=== PATIENT | male | born 1990 | race Caucasian/White ===

== ENCOUNTER 2017-07-22 08:28 | Emergency (ER) | payer OTHER ==
--- NOTE | 2017-07-22 09:06 | EDM.PDOC ---
ED HPI GENERAL MEDICAL PROBLEM - General Chief Complaint: General Stated Complaint: [facility] Time Seen by Provider: 07/22/17 08:28 - History of Present Illness INITIAL COMMENTS - FREE TEXT/NARRATIVE: Male in his mid-20s brought in by EMS with suspected heroin overdose. I am uncertain as to what was going on at the hotel where he was found. Police arrived at the scene without the patient was not breathing the administered 2 mg of Narcan intranasally patient had spontaneous return of respirations. Apparently he did have CPR started briefly in the field by law enforcement. The patient is awake and answering a few questions while here when questioned about what atopic he doesn't know and will not answer questions with specifics at one point he said he couldn't hear however was still answering questions the patient has an ankle monitoring bracelet in place by law enforcement. - Related Data Allergies Allergy/AdvReac Type Severity Reaction Status Date / Time Penicillins Allergy Cannot Verified 07/22/17 08:57 Remember Home Meds: Home Meds Buprenorphine HCl/Naloxone HCl [Suboxone 4 mg-1 mg Sl Film] 8 mg SQ DAILY [History] Past Medical History - Past Health History Medical/Surgical History: Denies Medical/Surgical History Social & Family History - Tobacco Use Smoking Status *Q: Current Status Unknown - Recreational Drug Use Recreational Drug Use: Yes Drug Use in Last 12 Months: Yes ED ROS GENERAL - Review of Systems Review Of Systems: Unable To Obtain ED EXAM, GENERAL - Physical Exam Exam: See Below Exam Limited By: Other (At times the patient answers questions very appropriately when a subject such as what did you take comes up the answer as always I don't know. His vital signs appear stable however because of technical difficulties monitoring his end-tidal CO2 has been achieved as of this time.) General Appearance: Alert (He seems to wake up appropriately), No Apparent Distress Eye Exam: Bilateral Eye: EOMI, PERRL Ears: Normal External Exam, Normal Canal, Hearing Grossly Normal, Normal TMs Nose: Normal Inspection, Normal Mucosa, No Blood Throat/Mouth: Normal Inspection, Normal Lips, Normal Gums, Normal Oropharynx, Normal Voice, No Airway Compromise Head: Atraumatic, Normocephalic Neck: Normal Inspection, Supple, Non-Tender, Full Range of Motion. No: Lymphadenopathy (L), Lymphadenopathy (R) Respiratory/Chest: No Respiratory Distress, Lungs Clear, Normal Breath Sounds Cardiovascular: Regular Rate, Rhythm, No Edema, No Murmur GI/Abdominal: Normal Bowel Sounds, Soft, Non-Tender Extremities: Normal Inspection, Non-Tender, No Pedal Edema Neurological: Alert EKG INTERPRETATION EKG Date: 07/22/17 Time: 09:11 Rhythm: Other (Sinus driven tachycardia) [place]: Normal P-Wave: Present QRS: Normal ST-T: Other (Nonspecific nondiagnostic changes) QT: Normal Comparison: NA - No Prior EKG Course - Vital Signs Last Recorded V/S: Last Vital Signs Temp 36.9 C 07/22/17 09:30 Pulse 109 H 07/22/17 09:30 Resp 24 H 07/22/17 09:30 BP 145/76 H 07/22/17 09:30 Pulse Ox 97 07/22/17 09:30 - Orders/Labs/Meds Orders: Active Orders 24 hr Category Date Time Status EKG Documentation Completion [RC] STAT Care 07/22/17 08:40 Active BLOOD GAS ARTERIAL [BG] Stat Lab 07/22/17 08:40 Results Lactated Ringers [Ringers, Lactated] 1,000 ml Med 07/22/17 09:15 Active IV ASDIRECTED Medication Orders Lactated Ringer's (Ringers, Lactated) 1,000 mls @ 150 mls/hr IV ASDIRECTED [facility] Last Admin: 07/22/17 09:25 Dose: 150 mls/hr Labs: Laboratory Tests 07/22/17 07/22/17 07/22/17 Range/Units 08:40 09:24 09:24 WBC 10.88 H (4.23-9.07) K/mm3 RBC 5.32 (4.63-6.08) M/mm3 Hgb 15.8 (13.7-17.5) gm/L Hct 45.6 (40.1-51.0) % MCV 85.7 (79.0-92.2) fl MCH 29.7 (25.7-32.2) pg MCHC 34.6 (32.2-35.5) g/dl RDW Std Deviation 40.3 (35.1-43.9) fL Plt Count 146 L (163-337) K/mm3 MPV 9.3 L (9.4-12.3) fl Neutrophils % (Manual) 71 H (40-60) % Band Neutrophils % 0 (0-10) % Lymphocytes % (Manual) 24 (20-40) % Atypical Lymphs % 0 % Monocytes % (Manual) 4 (2-10) % Eosinophils % (Manual) 1 (0.8-7.0) % Basophils % (Manual) 0 L (0.2-1.2) Platelet Estimate Adequate RBC Morph Comment Normal Puncture Site Lt radial ABG pH 7.43 (7.35-7.45) ABG pCO2 44.6 (35.0-45.0) mmHg ABG pO2 62.0 L (80.0-100.0) mmHg ABG HCO3 28.8 H (22.0-26.0) meq/L ABG O2 Saturation 93.2 L (96.0-97.0) % ABG Base Excess 4.2 H (-2-2.0) Eddie Test Positive O2 Delivery Device Room air FiO2 0.00 L (21.00-100.00) % Sodium 139 (136-145) mEq/L Potassium 3.4 L (3.5-5.1) mEq/L Chloride 102 (98-107) mEq/L Carbon Dioxide 31 (21-32) mEq/L Anion Gap 9.4 (5-15) BUN 11 (7-18) mg/dL Creatinine 0.9 (0.7-1.3) mg/dL Est Cr Clr Drug Dosing 119.70 mL/min Estimated GFR (MDRD) > 60 (>60) mL/min BUN/Creatinine Ratio 12.2 L (14-18) Glucose 101 (74-106) mg/dL Calcium 8.8 (8.5-10.1) mg/dL Total Bilirubin 0.5 (0.2-1.0) mg/dL AST 53 H (15-37) U/L ALT 101 H (16-63) U/L Alkaline Phosphatase 41 L (46-116) U/L Troponin I < 0.017 (0.00-0.056) ng/mL Total Protein 7.4 (6.4-8.2) g/dl Albumin 3.6 (3.4-5.0) g/dl Globulin 3.8 gm/dL Albumin/Globulin Ratio 1.0 (1-2) Urine Color (Yellow) Urine Appearance (Clear) Urine pH (5.0-8.0) Ur Specific [place] (1.005-1.030) Urine Protein (Negative) Urine Glucose (UA) (Negative) Urine Ketones (Negative) Urine Occult Blood (Negative) Urine Nitrite (Negative) Urine Bilirubin (Negative) Urine Urobilinogen (0.2-1.0) Ur Leukocyte Esterase (Negative) Urine RBC (0-5) /hpf Urine WBC (0-5) /hpf Ur Epithelial Cells (0-5) /hpf Urine Bacteria (FEW) /hpf Hyaline Casts (0-5) /lpf Urine Mucus (FEW) /hpf Salicylates (2.8-20) mg/dL Urine Opiates Screen (NEGATIVE) Ur Buprenorphine Scrn (NEGATIVE) Ur Oxycodone Screen (NEGATIVE) Urine Methadone Screen (NEGATIVE) Ur Propoxyphene Screen (NEGATIVE) Acetaminophen 0 L (10-30) ug/mL Ur Barbiturates Screen (NEGATIVE) Ur Tricyclics Screen (NEGATIVE) Ur Phencyclidine Scrn (NEGATIVE) Ur Amphetamine Screen (NEGATIVE) U Methamphetamines Scrn (NEGATIVE) U Benzodiazepines Scrn (NEGATIVE) U Cocaine Metab Screen (NEGATIVE) U Marijuana (THC) Screen (NEGATIVE) 07/22/17 07/22/17 07/22/17 Range/Units 09:24 10:45 10:45 WBC (4.23-9.07) K/mm3 RBC (4.63-6.08) M/mm3 Hgb (13.7-17.5) gm/L Hct (40.1-51.0) % MCV (79.0-92.2) fl MCH (25.7-32.2) pg MCHC (32.2-35.5) g/dl RDW Std Deviation (35.1-43.9) fL Plt Count (163-337) K/mm3 MPV (9.4-12.3) fl Neutrophils % (Manual) (40-60) % Band Neutrophils % (0-10) % Lymphocytes % (Manual) (20-40) % Atypical Lymphs % % Monocytes % (Manual) (2-10) % Eosinophils % (Manual) (0.8-7.0) % Basophils % (Manual) (0.2-1.2) Platelet Estimate RBC Morph Comment Puncture Site ABG pH (7.35-7.45) ABG pCO2 (35.0-45.0) mmHg ABG pO2 (80.0-100.0) mmHg ABG HCO3 (22.0-26.0) meq/L ABG O2 Saturation (96.0-97.0) % ABG Base Excess (-2-2.0) Eddie Test O2 Delivery Device FiO2 (21.00-100.00) % Sodium (136-145) mEq/L Potassium (3.5-5.1) mEq/L Chloride (98-107) mEq/L Carbon Dioxide (21-32) mEq/L Anion Gap (5-15) BUN (7-18) mg/dL Creatinine (0.7-1.3) mg/dL Est Cr Clr Drug Dosing mL/min Estimated GFR (MDRD) (>60) mL/min BUN/Creatinine Ratio (14-18) Glucose (74-106) mg/dL Calcium (8.5-10.1) mg/dL Total Bilirubin (0.2-1.0) mg/dL AST (15-37) U/L ALT (16-63) U/L Alkaline Phosphatase (46-116) U/L Troponin I (0.00-0.056) ng/mL Total Protein (6.4-8.2) g/dl Albumin (3.4-5.0) g/dl Globulin gm/dL Albumin/Globulin Ratio (1-2) Urine Color Yellow (Yellow) Urine Appearance Clear (Clear) Urine pH 6.5 (5.0-8.0) Ur Specific [place] 1.025 (1.005-1.030) Urine Protein 1+ H (Negative) Urine Glucose (UA) Negative (Negative) Urine Ketones Negative (Negative) Urine Occult Blood Negative (Negative) Urine Nitrite Negative (Negative) Urine Bilirubin Negative (Negative) Urine Urobilinogen 0.2 (0.2-1.0) Ur Leukocyte Esterase Negative (Negative) Urine RBC 0-5 (0-5) /hpf Urine WBC 0-5 (0-5) /hpf Ur Epithelial Cells Not seen (0-5) /hpf Urine Bacteria Not seen (FEW) /hpf Hyaline Casts 0-5 (0-5) /lpf Urine Mucus Few (FEW) /hpf Salicylates 1.6 L (2.8-20) mg/dL Urine Opiates Screen Negative (NEGATIVE) Ur Buprenorphine Scrn Negative (NEGATIVE) Ur Oxycodone Screen Negative (NEGATIVE) Urine Methadone Screen Negative (NEGATIVE) Ur Propoxyphene Screen Negative (NEGATIVE) Acetaminophen (10-30) ug/mL Ur Barbiturates Screen Negative (NEGATIVE) Ur Tricyclics Screen Negative (NEGATIVE) Ur Phencyclidine Scrn Negative (NEGATIVE) Ur Amphetamine Screen Presumptive positive H (NEGATIVE) U Methamphetamines Scrn Negative (NEGATIVE) U Benzodiazepines Scrn Negative (NEGATIVE) U Cocaine Metab Screen Negative (NEGATIVE) U Marijuana (THC) Screen Presumptive positive H (NEGATIVE) 07/22/17 Range/Units 11:10 WBC (4.23-9.07) K/mm3 RBC (4.63-6.08) M/mm3 Hgb (13.7-17.5) gm/L Hct (40.1-51.0) % MCV (79.0-92.2) fl MCH (25.7-32.2) pg MCHC (32.2-35.5) g/dl RDW Std Deviation (35.1-43.9) fL Plt Count (163-337) K/mm3 MPV (9.4-12.3) fl Neutrophils % (Manual) (40-60) % Band Neutrophils % (0-10) % Lymphocytes % (Manual) (20-40) % Atypical Lymphs % % Monocytes % (Manual) (2-10) % Eosinophils % (Manual) (0.8-7.0) % Basophils % (Manual) (0.2-1.2) Platelet Estimate RBC Morph Comment Puncture Site Lt radial ABG pH 7.39 (7.35-7.45) ABG pCO2 49.7 H (35.0-45.0) mmHg ABG pO2 94.0 (80.0-100.0) mmHg ABG HCO3 29.4 H (22.0-26.0) meq/L ABG O2 Saturation 97.9 H (96.0-97.0) % ABG Base Excess 3.9 H (-2-2.0) Eddie Test Positive O2 Delivery Device Nasal cannula FiO2 0.00 L (21.00-100.00) % Sodium (136-145) mEq/L Potassium (3.5-5.1) mEq/L Chloride (98-107) mEq/L Carbon Dioxide (21-32) mEq/L Anion Gap (5-15) BUN (7-18) mg/dL Creatinine (0.7-1.3) mg/dL Est Cr Clr Drug Dosing mL/min Estimated GFR (MDRD) (>60) mL/min BUN/Creatinine Ratio (14-18) Glucose (74-106) mg/dL Calcium (8.5-10.1) mg/dL Total Bilirubin (0.2-1.0) mg/dL AST (15-37) U/L ALT (16-63) U/L Alkaline Phosphatase (46-116) U/L Troponin I (0.00-0.056) ng/mL Total Protein (6.4-8.2) g/dl Albumin (3.4-5.0) g/dl Globulin gm/dL Albumin/Globulin Ratio (1-2) Urine Color (Yellow) Urine Appearance (Clear) Urine pH (5.0-8.0) Ur Specific [place] (1.005-1.030) Urine Protein (Negative) Urine Glucose (UA) (Negative) Urine Ketones (Negative) Urine Occult Blood (Negative) Urine Nitrite (Negative) Urine Bilirubin (Negative) Urine Urobilinogen (0.2-1.0) Ur Leukocyte Esterase (Negative) Urine RBC (0-5) /hpf Urine WBC (0-5) /hpf Ur Epithelial Cells (0-5) /hpf Urine Bacteria (FEW) /hpf Hyaline Casts (0-5) /lpf Urine Mucus (FEW) /hpf Salicylates (2.8-20) mg/dL Urine Opiates Screen (NEGATIVE) Ur Buprenorphine Scrn (NEGATIVE) Ur Oxycodone Screen (NEGATIVE) Urine Methadone Screen (NEGATIVE) Ur Propoxyphene Screen (NEGATIVE) Acetaminophen (10-30) ug/mL Ur Barbiturates Screen (NEGATIVE) Ur Tricyclics Screen (NEGATIVE) Ur Phencyclidine Scrn (NEGATIVE) Ur Amphetamine Screen (NEGATIVE) U Methamphetamines Scrn (NEGATIVE) U Benzodiazepines Scrn (NEGATIVE) U Cocaine Metab Screen (NEGATIVE) U Marijuana (THC) Screen (NEGATIVE) Meds: Medications Generic Name Dose Route Start Last Admin Trade Name Freq PRN Reason Stop Dose Admin Lactated Ringer's 1,000 mls @ 150 mls/hr 07/22/17 09:15 07/22/17 09:25 Ringers, Lactated IV 150 mls/hr ASDIRECTED [facility] Administration - Re-Assessments/Exams Free Text/Narrative Re-Assessment/Exam: 07/22/17 09:10 It is my understanding this time we're still trying to get an EKG ABGs just got called for and we have not been able to get in tidal CO2 going. Getting accurate measurements to metabolic situation especially when he was out in the field is getting be less reflective of what we get now. 07/22/17 09:36 His blood gas pH is 7.43 PCO2 44.6 PO2 is diminished 62 bicarbonate 28.8, 02 saturation 93.2% we'll start him on supplemental oxygen continue to monitor in tidal CO2. Chest x-ray shows a sinus tachycardia 07/22/17 09:41 07/22/17 13:11 He continues to do well follow-up gases show correction of his PO2 the patient' s bicarbonate is still up a little bit. With conversation with the patient he admits to using heroin it's been quite a long time since he used heroin. His urine drug screen did not show any opioids and I am not surprised with a history like this. The patient's hypoxic episode clarified with a friend of the patient he really never had chest compressions done but he was having deep irregular respirations and at one point he turned blue quickly responded to this the time of this uncertainty is not quite clear perhaps 2 minutes perhaps as long as 5 minutes I have strongly recommended and offered to arrange transport to [place] for further observation and neurologic evaluation with the unknown details of the suspected hypoxic event. The patient adamantly refused this when I first discussed this with him and again we just recently discussed this with him. The patient's friend who is sober and clean agrees to keep a very close eye on the patient. The patient was also question about his intent. He adamantly denies any suicidal wishes. He has no wishes to harm himself or others. Departure - Departure Time of Disposition: 13:14 Disposition: Home, Self-Care 01 Clinical Impression: Accidental heroin overdose - Discharge Information Forms: ED Department Discharge Additional Instructions: Return to emergency room if any questions problems or worsening symptoms. Avoid all drugs that are not provided to you by a physician or health care provider. Follow-up at the Hospital clinic on Tuesday for recheck call today for an appointment [phone] - My Orders Last 24 Hours: My Active Orders 07/22/17 08:40 EKG Documentation Completion [RC] STAT BLOOD GAS ARTERIAL [BG] Stat 07/22/17 09:15 Lactated Ringers [Ringers, Lactated] 1,000 ml IV ASDIRECTED - Assessment/Plan Last 24 Hours: My Active Orders 07/22/17 08:40 EKG Documentation Completion [RC] STAT BLOOD GAS ARTERIAL [BG] Stat 07/22/17 09:15 Lactated Ringers [Ringers, Lactated] 1,000 ml IV ASDIRECTED
[2017-07-22] MEDS ORDERED: Lactated Ringers 1,000 ML IV SCH (09:15)
[2017-07-22 10:14] LABS: ACETAMINOPHEN 0 ug/mL (10-30)
== END 2017-07-22 13:35 | disposition home or self-care (01) ==
LOC: EDBD 08:28 → JD.ED 08:28
DX: T40.1X1A Poisoning by heroin, accidental (unintentional), initial encounter (principal); Z88.0 Allergy status to penicillin; Z79.899 Other long term (current) drug therapy
CPT/HCPCS: 36415; 36600; 80053; 80306; 81001; 82803; 84484; 85025; 93005; 96360; 96361; 99285; G0480; J7120

== ENCOUNTER 2017-10-19 09:48 | Emergency (ER) | payer SELFPAY ==
[2017-10-19] MEDS ORDERED: hydrOXYzine HCl 25 MG/ML SDV IM ONE (11:04)
--- NOTE | 2017-10-19 11:04 | EDM.PDOCBH ---
ED HPI GENERAL MEDICAL PROBLEM - General Chief Complaint: Drug or Alcohol Abuse Stated Complaint: ANXIETY/MEDICAL CLEARANCE FOR [facility] Time Seen by Provider: 10/19/17 10:53 Source of Information: Reports: Patient History Limitations: Reports: No Limitations - History of Present Illness INITIAL COMMENTS - FREE TEXT/NARRATIVE: 27-year-old male presents for medical clearance to go to [facility]. Patient reports he was recently incarcerated September 26 through October 16. States he was jailed for driving under suspension. Reports he has a history of heroin abuse. Has not used heroin in the past several months. Previously on Suboxone, last use September 26 prior to incarceration. This was prescribed by Dr. Ogden in [place]. Patient presents today over concerns of any anxiety. He states he's always had anxiety but since being released from retirement his anxiety has increased substantially. He states he hasn't slept since Tuesday. Reports that he was having trouble falling asleep but he is having trouble staying asleep. He reports he experiences chest palpitations, shortness of breath and chest pain from anxiety and panic attacks. He has not had any fevers, chills, nausea, vomiting, headaches, seizures or any cough. He states that he's had 2 episodes of diarrhea. Patient reports he has a history of hep C. He is never seen gastroenterology for this. No primary care provider here in [place]. Denies any recent alcohol use. Reports the same drinking alcohol was about 6 months ago. Left Shoulder Pain Score (Numeric/FACES): 1 Face Pain Score (Numeric/FACES): 1 - Related Data Allergies Allergy/AdvReac Type Severity Reaction Status Date / Time Penicillins Allergy Cannot Verified 10/19/17 10:05 Remember Home Meds: Home Meds Buprenorphine HCl/Naloxone HCl [Zubsolv 11.4-2.9 mg Tablet Sl] 11.4 mg SL BID [History] Ondansetron [Zofran ODT] 4 mg PO Q6H PRN #20 tab.dis 10/19/17 [Rx] hydrOXYzine HCl [Atarax] 25 mg PO DAILY #57 tab 10/19/17 [Rx] Past Medical History - Past Health History Medical/Surgical History: Denies Medical/Surgical History HEENT History: Reports: Other (See Below) Other HEENT History: "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 Gastrointestinal History: Reports: GERD, Hepatitis Musculoskeletal History: Reports: Fracture Neurological History: Reports: Concussion, Head Trauma Psychiatric History: Reports: Addiction, Anxiety, Depression - Infectious Disease History Infectious Disease History: Reports: Chicken Pox, Hepatitis C - Past Surgical History HEENT Surgical History: Reports: Tonsillectomy GI Surgical History: Reports: Appendectomy Musculoskeletal Surgical History: Reports: Other (See Below) Other Musculoskeletal Surgeries/Procedures:: reconstructive surgery to face. Social & Family History - Tobacco Use Smoking Status *Q: Current Every Day Smoker Years of Tobacco use: 20 Packs/Tins Daily: 1 - Caffeine Use Caffeine Use: Reports: Coffee - Recreational Drug Use Recreational Drug Use: Yes Drug Use in Last 12 Months: Yes Recreational Drug Type: Reports: Heroin ED ROS GENERAL - Review of Systems Review Of Systems: See Below Constitutional: Denies: Fever, Chills Respiratory: Reports: Shortness of Breath Cardiovascular: Reports: Chest Pain, Palpitations GI/Abdominal: Reports: Abdominal Pain (LUQ sharp pains), Diarrhea. Denies: Nausea, Vomiting Neurological: Denies: Headache, Seizure Psychiatric: Reports: Anxiety ED EXAM, BEHAVIORAL HEALTH - Physical Exam Exam: See Below Exam Limited By: No Limitations General Appearance: Alert, WD/WN, No Apparent Distress Eye Exam: Bilateral Eye: Normal Inspection Ears: Normal External Exam Nose: Normal Inspection Throat/Mouth: Normal Inspection, Normal Lips, Normal Voice, No Airway Compromise Respiratory/Chest: No Respiratory Distress, Lungs Clear, Normal Breath Sounds Cardiovascular: No Murmur, Tachycardia GI/Abdominal: Normal Bowel Sounds, Soft, Non-Tender Neurological: Alert, Normal Mood/Affect, Normal Cognition Psychiatric: Alert, Restless, Other (fidgiting) Skin Exam: Warm, Dry, Normal color COURSE, BEHAVIORAL HEALTH COMP - Course Vital Signs: Last Vital Signs Temp 36.5 C 10/19/17 09:55 Pulse 120 H 10/19/17 09:55 Resp 20 10/19/17 09:55 BP 162/96 H 10/19/17 09:55 Pulse Ox 99 10/19/17 09:55 Orders, Labs, Meds: Active Orders 24 hr Category Date Time Status DRUG SCREEN, URINE [URCHEM] Stat Lab 10/19/17 12:05 Ordered UA W/MICROSCOPIC [URIN] Stat Lab 10/19/17 12:05 Ordered Laboratory Tests 10/19/17 10/19/17 10/19/17 Range/Units 11:20 11:20 11:20 WBC 7.64 (4.23-9.07) K/mm3 RBC 5.44 (4.63-6.08) M/mm3 Hgb 16.3 (13.7-17.5) gm/L Hct 48.3 (40.1-51.0) % MCV 88.8 (79.0-92.2) fl MCH 30.0 (25.7-32.2) pg MCHC 33.7 (32.2-35.5) g/dl RDW Std Deviation 45.8 H (35.1-43.9) fL Plt Count 148 L (163-337) K/mm3 MPV 9.0 L (9.4-12.3) fl Neutrophils % (Manual) 55 (40-60) % Band Neutrophils % 0 (0-10) % Lymphocytes % (Manual) 45 H (20-40) % Atypical Lymphs % 0 % Monocytes % (Manual) 0 L (2-10) % Eosinophils % (Manual) 0 L (0.8-7.0) % Basophils % (Manual) 0 L (0.2-1.2) Platelet Estimate Adequate RBC Morph Comment Normal PT 10.4 (8.0-13.0) SECONDS INR 0.97 APTT 27 (22-36) SECONDS Sodium 145 (136-145) mEq/L Potassium 3.8 (3.5-5.1) mEq/L Chloride 104 (98-107) mEq/L Carbon Dioxide 30 (21-32) mEq/L Anion Gap 14.8 (5-15) BUN 21 H (7-18) mg/dL Creatinine 1.0 (0.7-1.3) mg/dL Est Cr Clr Drug Dosing 104.66 mL/min Estimated GFR (MDRD) > 60 (>60) mL/min BUN/Creatinine Ratio 21.0 H (14-18) Glucose 98 (74-106) mg/dL Calcium 9.7 (8.5-10.1) mg/dL Magnesium 2.2 (1.8-2.4) mg/dl Total Bilirubin 1.0 (0.2-1.0) mg/dL AST 97 H (15-37) U/L ALT 206 H (16-63) U/L Alkaline Phosphatase 42 L (46-116) U/L Total Protein 8.2 (6.4-8.2) g/dl Albumin 4.5 (3.4-5.0) g/dl Globulin 3.7 gm/dL Albumin/Globulin Ratio 1.2 (1-2) Lipase 92 (73-393) U/L TSH 3rd Generation 1.026 (0.358-3.74) uIU/mL Urine Color (Yellow) Urine Appearance (Clear) Urine pH (5.0-8.0) Ur Specific [place] (1.005-1.030) Urine Protein (Negative) Urine Glucose (UA) (Negative) Urine Ketones (Negative) Urine Occult Blood (Negative) Urine Nitrite (Negative) Urine Bilirubin (Negative) Urine Urobilinogen (0.2-1.0) Ur Leukocyte Esterase (Negative) Urine RBC (0-5) /hpf Urine WBC (0-5) /hpf Ur Epithelial Cells (0-5) /hpf Amorphous Sediment (NOT SEEN) /hpf Urine Bacteria (FEW) /hpf Urine Mucus (FEW) /hpf Urine Opiates Screen (NEGATIVE) Ur Buprenorphine Scrn (NEGATIVE) Ur Oxycodone Screen (NEGATIVE) Urine Methadone Screen (NEGATIVE) Ur Propoxyphene Screen (NEGATIVE) Ur Barbiturates Screen (NEGATIVE) Ur Tricyclics Screen (NEGATIVE) Ur Phencyclidine Scrn (NEGATIVE) Ur Amphetamine Screen (NEGATIVE) U Methamphetamines Scrn (NEGATIVE) U Benzodiazepines Scrn (NEGATIVE) U Cocaine Metab Screen (NEGATIVE) U Marijuana (THC) Screen (NEGATIVE) Ethyl Alcohol 0.00 (0.00) gm% 10/19/17 10/19/17 Range/Units 12:05 12:05 WBC (4.23-9.07) K/mm3 RBC (4.63-6.08) M/mm3 Hgb (13.7-17.5) gm/L Hct (40.1-51.0) % MCV (79.0-92.2) fl MCH (25.7-32.2) pg MCHC (32.2-35.5) g/dl RDW Std Deviation (35.1-43.9) fL Plt Count (163-337) K/mm3 MPV (9.4-12.3) fl Neutrophils % (Manual) (40-60) % Band Neutrophils % (0-10) % Lymphocytes % (Manual) (20-40) % Atypical Lymphs % % Monocytes % (Manual) (2-10) % Eosinophils % (Manual) (0.8-7.0) % Basophils % (Manual) (0.2-1.2) Platelet Estimate RBC Morph Comment PT (8.0-13.0) SECONDS INR APTT (22-36) SECONDS Sodium (136-145) mEq/L Potassium (3.5-5.1) mEq/L Chloride (98-107) mEq/L Carbon Dioxide (21-32) mEq/L Anion Gap (5-15) BUN (7-18) mg/dL Creatinine (0.7-1.3) mg/dL Est Cr Clr Drug Dosing mL/min Estimated GFR (MDRD) (>60) mL/min BUN/Creatinine Ratio (14-18) Glucose (74-106) mg/dL Calcium (8.5-10.1) mg/dL Magnesium (1.8-2.4) mg/dl Total Bilirubin (0.2-1.0) mg/dL AST (15-37) U/L ALT (16-63) U/L Alkaline Phosphatase (46-116) U/L Total Protein (6.4-8.2) g/dl Albumin (3.4-5.0) g/dl Globulin gm/dL Albumin/Globulin Ratio (1-2) Lipase (73-393) U/L TSH 3rd Generation (0.358-3.74) uIU/mL Urine Color Yellow (Yellow) Urine Appearance Slt cloudy H (Clear) Urine pH 7.0 (5.0-8.0) Ur Specific [place] 1.025 (1.005-1.030) Urine Protein 1+ H (Negative) Urine Glucose (UA) Negative (Negative) Urine Ketones Negative (Negative) Urine Occult Blood Negative (Negative) Urine Nitrite Negative (Negative) Urine Bilirubin Negative (Negative) Urine Urobilinogen 1.0 (0.2-1.0) Ur Leukocyte Esterase Negative (Negative) Urine RBC Not seen (0-5) /hpf Urine WBC 0-5 (0-5) /hpf Ur Epithelial Cells Not seen (0-5) /hpf Amorphous Sediment Many H (NOT SEEN) /hpf Urine Bacteria Many H (FEW) /hpf Urine Mucus Few (FEW) /hpf Urine Opiates Screen Negative (NEGATIVE) Ur Buprenorphine Scrn Negative (NEGATIVE) Ur Oxycodone Screen Negative (NEGATIVE) Urine Methadone Screen Negative (NEGATIVE) Ur Propoxyphene Screen Negative (NEGATIVE) Ur Barbiturates Screen Negative (NEGATIVE) Ur Tricyclics Screen Negative (NEGATIVE) Ur Phencyclidine Scrn Negative (NEGATIVE) Ur Amphetamine Screen Presumptive positive H (NEGATIVE) U Methamphetamines Scrn Negative (NEGATIVE) U Benzodiazepines Scrn Negative (NEGATIVE) U Cocaine Metab Screen Negative (NEGATIVE) U Marijuana (THC) Screen Presumptive positive H (NEGATIVE) Ethyl Alcohol (0.00) gm% Medications Discontinued Medications Generic Name Dose Route Start Last Admin Trade Name Freq PRN Reason Stop Dose Admin Hydroxyzine HCl 50 mg 10/19/17 11:04 10/19/17 11:16 Vistaril IM 10/19/17 11:05 50 mg ONETIME ONE Administration Re-Assessment/Re-Exam: 13:50 checked on the patient he was sleeping. He is now awake. Tachycardia improved in the 90s, Likely from amphetamine as he did test positive, presumptively, for this. I do feel that he is medically cleared to go to [facility]. I will give him hydroxyzine and Zofran for his side effects. I reviewed the labs with the patient. Plan will be mother to take him to the [facility]. Discharge instructions as documented. Departure - Departure Time of Disposition: 14:00 Disposition: DC/Tfer to Other 70 Condition: Fair Clinical Impression: Substance abuse - Discharge Information Prescriptions: hydrOXYzine HCl [Atarax] 25 mg PO DAILY #57 tab Ondansetron [Zofran ODT] 4 mg PO Q6H PRN #20 tab.dis PRN Reason: Nausea Instructions: Substance Use Disorder Referrals: PCP,None [Primary Care Provider] - Additional Instructions: Go to [facility] as planned. Zofran 1 tab sublingual every 6 hours as needed for nausea0 Hydroxyzine as prescribed. 2 tabs every 6 hours for 3 days then 2 tabs every 8 hours for 3 days then 1 tab every 8 hours for 3 days then 1 tab every 12 hours for 3 days this will help with her anxiety. Recommend you drink plenty of fluids of these medications can be drying. Recommend establishing with a primary care provider and seen a borematic machine operator as soon as you able to. Given the new medications for hepatitis C treatment you may be eligible to have your hep C cured. Please return to the ER for symptoms change or worsen. - My Orders Last 24 Hours: My Active Orders 10/19/17 12:05 DRUG SCREEN, URINE [URCHEM] Stat UA W/MICROSCOPIC [URIN] Stat - Assessment/Plan Last 24 Hours: My Active Orders 10/19/17 12:05 DRUG SCREEN, URINE [URCHEM] Stat UA W/MICROSCOPIC [URIN] Stat
== END 2017-10-19 13:46 | disposition other institution (70) ==
LOC: JD.ED 09:48
DX: F19.10 Other psychoactive substance abuse, uncomplicated (principal); F41.9 Anxiety disorder, unspecified; F17.210 Nicotine dependence, cigarettes, uncomplicated; Z79.899 Other long term (current) drug therapy; Z88.0 Allergy status to penicillin; Z86.19 Personal history of other infectious and parasitic diseases
CPT/HCPCS: 36415; 80053; 80306; 81001; 83690; 83735; 84443; 85025; 85610; 85730; 96372; 99283; G0480; J3410

== ENCOUNTER 2017-10-26 11:06 | Emergency (ER) | payer SELFPAY ==
--- NOTE | 2017-10-26 12:17 | EDM.PDOC ---
<Jolly Ballesteros - Last Filed: 10/26/17 12:04> ED HPI GENERAL MEDICAL PROBLEM - General Chief Complaint: Respiratory Problem Stated Complaint: CHEST PAIN Time Seen by Provider: 10/26/17 11:50 Source of Information: Reports: Patient History Limitations: Reports: No Limitations - History of Present Illness INITIAL COMMENTS - FREE TEXT/NARRATIVE: Patient is a 27 YO male who presents for right shoulder pain and rib pain. Patient states this started 2 days ago and is described as a "zapping" sensation that seems to start in the lower right chest and radiate to the left or right neck and right shoulder. The pain has become worse today. He denies any injury to the area. He also states it feels like he has a "lump in his throat" making it hard to take a deep breath in and sometimes feels like he can' t catch his breath. He was placed on Prozac and Clonidine 2 days ago for anxiety. He doesn't think this has helped much. He stopped using his nicotine patch because he felt it was making his anxiety worse. He does report RUQ pain. He admits to some nausea but no vomiting or diarrhea. He states that when he eats he has increased nausea but it does not increase his RUQ pain. He denies fever, cough, sore throat, or headache. 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 Gastrointestinal History: Reports: GERD, Hepatitis Musculoskeletal History: Reports: Fracture Neurological History: Reports: Concussion, Head Trauma Psychiatric History: Reports: Addiction, Anxiety, Depression - Infectious Disease History Infectious Disease History: Reports: Chicken Pox, Hepatitis C - Past Surgical History HEENT Surgical History: Reports: Tonsillectomy GI Surgical History: Reports: Appendectomy Musculoskeletal Surgical History: Reports: Other (See Below) Other Musculoskeletal Surgeries/Procedures:: reconstructive surgery to face. Social & Family History - Tobacco Use Smoking Status *Q: Current Every Day Smoker Years of Tobacco use: 18 Packs/Tins Daily: 1 - Caffeine Use Caffeine Use: Reports: Coffee, Energy Drinks, Tea - Recreational Drug Use Recreational Drug Use: Yes Drug Use in Last 12 Months: Yes Recreational Drug Type: Reports: Heroin, Methamphetamine, Other (see below) Other Recreational Drug Type: suboxone; speed ED ROS GENERAL - Review of Systems Review Of Systems: See Below Constitutional: Reports: No Symptoms Respiratory: Reports: Other (See HPI) Cardiovascular: Reports: Other (See HPI) GI/Abdominal: Reports: Abdominal Pain, Decreased Appetite, Nausea. Denies: Constipation, Diarrhea, Difficulty Swallowing, Vomiting : Reports: No Symptoms Musculoskeletal: Reports: Back Pain (chronic low back pain) Skin: Reports: No Symptoms Neurological: Reports: No Symptoms Psychiatric: Reports: No Symptoms ED EXAM, GENERAL - Physical Exam Exam: See Below Exam Limited By: No Limitations General Appearance: Alert, WD/WN, No Apparent Distress Eye Exam: Bilateral Eye: EOMI, PERRL Head: Atraumatic, Normocephalic Respiratory/Chest: No Respiratory Distress, Lungs Clear, Normal Breath Sounds Cardiovascular: Normal Peripheral Pulses, Regular Rate, Rhythm, No Edema, No Murmur GI/Abdominal: Normal Bowel Sounds, Soft, No Distention, Tender (RUQ) Extremities: Other (shoulder is nontender to palpation, no redness or swelling, patient has full ROM and strength) Neurological: Alert, Oriented, CN II-XII Intact, Normal Cognition, No Motor/ Sensory Deficits Psychiatric: Normal Affect, Anxious Skin Exam: Warm, Dry, Intact, Normal Color, No Rash Course - Vital Signs Last Recorded V/S: Last Vital Signs Temp 36.8 C 10/26/17 11:13 Pulse 92 10/26/17 11:13 Resp 20 10/26/17 11:13 BP 131/86 10/26/17 11:13 Pulse Ox 98 10/26/17 11:13 Departure - Departure Disposition: Home, Self-Care 01 Clinical Impression: Chest pain, atypical, RUQ pain - Discharge Information Prescriptions: Omeprazole 20 mg PO DAILY #14 cap.sr Instructions: Chest Wall Pain Referrals: PCP,None [Primary Care Provider] - Alexia Jay [Physician] - Forms: ED Department Discharge Additional Instructions: Ultrasound scheduled for tomorrow morning. Check in at 7:30 am at the main south facing entrance. Nothing to eat or drink after midnight tonight. Follow-up with Dr. Lofton, family medicine at the [facility] located on the east side the [id number] on October 28 at 11:30am. ER follow-up as well as hopefully go over your ultrasound results. Recommend [id number] Tylenol or Motrin as needed for discomfort. take the omeprazole 1 tab daily as prescribed. This as been escribed to [facility]. Avoid fatty foods. Please return to the ER if your symptoms change or worsen. <Lacy Richter - Last Filed: 10/26/17 15:37> ED HPI GENERAL MEDICAL PROBLEM - History of Present Illness INITIAL COMMENTS - FREE TEXT/NARRATIVE: I have seen this patient and agree with the history of present illness as documented by LALA Morris. Course - Radiology Interpretation Free Text/Narrative:: Chest: Two views of the chest were obtained. Comparison: No prior chest x-ray. Heart size and mediastinum are normal. Lungs are clear with no acute parenchymal densities. Bony structures are unremarkable. Impression: 1. Nothing acute is seen on two-view chest x-ray. - Re-Assessments/Exams Free Text/Narrative Re-Assessment/Exam: 10/26/17 13:14 I have seen the patient and agree with the HPI, ROS and PE as documented by LALA Day. I reviewed the chest x-ray with the patient. He refused lab work. I reviewed his lab work from last week. He is elevated liver enzymes which is likely related to his hepatitis C. Is possible that he has gallstones. I was able to get an ultrasound for tomorrow morning follow-up with primary care on Tuesday. more likely, he has reflux. I will start him on omeprazole daily. Discharge instructions as documented. Departure - Departure Time of Disposition: 13:19 Condition: Fair
--- NOTE | 2017-10-26 13:07 | CR ---
Chest: Two views of the chest were obtained. Comparison: No prior chest x-ray. Heart size and mediastinum are normal. Lungs are clear with no acute parenchymal densities. Bony structures are unremarkable. Impression: 1. Nothing acute is seen on two-view chest x-ray. Diagnostic code #1
== END 2017-10-26 13:40 | disposition home or self-care (01) ==
LOC: JD.ED 11:06
DX: R07.89 Other chest pain (principal); R10.11 Right upper quadrant pain; K21.9 Gastro-esophageal reflux disease without esophagitis; F41.9 Anxiety disorder, unspecified; F32.9 Major depressive disorder, single episode, unspecified; F17.210 Nicotine dependence, cigarettes, uncomplicated; Z88.0 Allergy status to penicillin
CPT/HCPCS: 71046; 71046-26; 99284; 99285

== ENCOUNTER 2018-03-31 14:32 | Emergency (ER) | payer SELFPAY ==
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
--- NOTE | 2018-03-31 15:54 | CR ---
Chest and right ribs: Two views of the right ribs were obtained as well as frontal view of the chest. Comparison: No prior rib exam, prior chest x-ray of 10/26/17. Heart size and mediastinum are normal. Lungs are clear. No pneumothorax is seen. No discrete fracture or other right sided rib abnormality is seen. Impression: 1. Nothing acute is seen on frontal chest x-ray. No discrete right sided rib abnormality is seen. Diagnostic code #1
== END 2018-03-31 16:34 | disposition home or self-care (01) ==
LOC: JD.ED 14:32
DX: S20.211A Contusion of right front wall of thorax, initial encounter (principal); S40.211A Abrasion of right shoulder, initial encounter; Z88.0 Allergy status to penicillin; V87.8XXA Person injured in other specified noncollision transport accidents involving motor vehicle (traffic), initial encounter
CPT/HCPCS: 71101-26-RT; 71101-RT; 99284; 99285